=== PATIENT | female | born 1965 ===

== ENCOUNTER → 2023-05-22 14:30 | Outpatient (REF) | payer OTHER, SELFPAY ==
[2023-05-28 00:33] LABS: HPV Genotype 16 Not Detected; HPV Genotype 18 Not Detected; HPV, High Risk Detected; HPV, High Risk Source Anal
== END ==
LOC: CLAB 14:30
PROVIDERS: ATTENDING PHYSICIAN Surgery
DX: A63.0 Anogenital (venereal) warts (principal)
CPT/HCPCS: 88304; 87624; 88112

== ENCOUNTER → 2023-07-20 11:46 | Outpatient (REF) | payer OTHER, SELFPAY | LOC: CLAB 11:46 | PROVIDERS: ATTENDING PHYSICIAN Surgery | DX: Z86.19 Personal history of other infectious and parasitic diseases (principal) | CPT/HCPCS: 88305 ==

== ENCOUNTER → 2023-09-15 06:29 | Day surgery (SDC) | payer OTHER, SELFPAY ==
[2023-09-15 13:12] LABS: Glucose - Point of Care 98 mg/dl (70-99)
== END ==
LOC: GI 06:29
PROVIDERS: ATTENDING PHYSICIAN Surgery
DX: Z12.11 Encounter for screening for malignant neoplasm of colon (principal); K57.30 Diverticulosis of large intestine without perforation or abscess without bleeding; K63.89 Other specified diseases of intestine
CPT/HCPCS: 45380; 88305; 82962